=== PATIENT | male | born 1995 | race Caucasian/White ===

== ENCOUNTER 2020-05-26 00:18 | Emergency (ER) | payer OTHER ==
--- NOTE | 2020-05-26 00:24 | PDOC ---
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 Patient said there was a fair amount of blood and he got it on his hands and clothes. Patient denies getting any in his mouth nose face or eyes. Patient denies any open wounds on exposed surfaces where he came in contact with the blood. 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 No smoking. No alcohol. No illicit drugs. Surgical history: None General: No fevers or chills, no weakness, no weight loss HEENT: No change in vision. No sore throat,. No ear pain CardioVascular: no chest discomfort. No shortness of breath Respiratory:No cough, or wheezing. Gastrointestinal: no nausea, vomiting, diarrhea or constipation, No rectal bleeding Genitourinary: No dysuria, hematuria, or frequency Musculoskeletal: No joint or muscle pain or swelling Neurologic: No headache, vertigo, dizziness or loss of consciousness Psychiatric: nor depression Skin: No rashes or easy bruising Endocrine: no increased thirst or abnormal weight change Allergic: no skin or latex allergy All other systems reviewed and normal GENERAL: The patient is awake, alert, and fully oriented, in no acute distress. HEENT:Head is normal with no signs of trauma. Eyes: Pupils equal, round and reactive to light, Ears, and Throat are normal. Neck is supple. No Lymphadenopathy. EXTREMITIES:atraumatic, Normal range of motion, no edema. NEUROLOGICAL: Normal speech, normal gait. PSYCH: Normal mood, normal affect. SKIN: Warm, Dry, normal turgor, no rashes or lesions noted. 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 Patient discharged we will follow-up with the police surgeon as needed. HIV prophylaxis was not given as there was no exposure to mucous membranes or open wounds Past History - Medical History Allergies/Adverse Reactions: Allergies Allergy/AdvReac Type Severity Reaction Status Date / Time No Known Allergies Allergy Verified 02/02/16 21:18 Home Medications: Ambulatory Orders Dextroamphetamine/Amphetamine [Adderall Xr 30 mg Capsule] 30 mg PO DAILY 12/17/15 Oxycodone HCl/Acetaminophen [Percocet 5-325 mg Tablet] 1 tab PO Q6H PRN #10 tablet MDD 4 02/02/16 Azithromycin 250 mg PO DAILY #6 tablet 02/23/20 - Psycho-Social/Smoking History Smoking History: Never smoked Discharge - Discharge Information Problems reviewed: Yes Clinical Impression/Diagnosis: Exposure to blood or body fluid Condition: Stable Disposition: HOME - Admission No - Follow up/Referral - Patient Discharge Instructions Additional Instructions: Return to the emergency department immediately with ANY new, persistent or worsening symptoms. Continue any medications as previously prescribed by your physician. You should follow up with your primary doctor as soon as possible regarding today's emergency department visit. . Please make sure your doctor reviews the results of your emergency evaluation. Thank you for coming to the Emergency Department today for your care. It was a pleasure to see you today. Please note that your evaluation is INCOMPLETE until you follow-up with your doctor. - Post Discharge Activity Work/Back to School Note: Back to Work
[2020-05-26 00:35] VITALS: BP 122/70; PULSE 102; TEMP 98.9; BMI 26.4
== END 2020-05-26 00:49 | disposition home or self-care (01) ==
LOC: FER 00:18
DX: Z77.21 Contact with and (suspected) exposure to potentially hazardous body fluids (principal)
CPT/HCPCS: 99282-25

== ENCOUNTER 2020-11-01 23:11 | Emergency (ER) | payer OTHER ==
[2020-11-01 23:34] VITALS: BP 147/90; PULSE 114; TEMP 99.6; BMI 26.4
[2020-11-02] MEDS ORDERED: ACETAMINOPHEN 325 MG TABLET (FP) PO ONE (00:12)
[2020-11-02] MEDS ORDERED: ACETAMINOPHEN 325 MG TABLET (FP) ONE (00:13)
== END 2020-11-02 00:14 | disposition home or self-care (01) ==
LOC: FER 23:11
DX: M25.562 Pain in left knee (principal)
CPT/HCPCS: 99283-25

== ENCOUNTER 2021-07-03 22:08 | Emergency (ER) | payer OTHER, BC ==
[2021-07-03 22:19] VITALS: BP 152/91; PULSE 107; TEMP 98.1; BMI 26.4
== END 2021-07-03 22:50 | disposition home or self-care (01) ==
LOC: FER 22:08
DX: S46.911A Strain of unspecified muscle, fascia and tendon at shoulder and upper arm level, right arm, initial encounter (principal); Y04.0XXA Assault by unarmed brawl or fight, initial encounter
CPT/HCPCS: 99282-25

== ENCOUNTER 2023-03-26 10:58 | Emergency (ER) | payer BC, OTHER ==
[2023-03-26 11:02] VITALS: BP 135/67; PULSE 63; RESP 18; TEMP 97; BMI 24.5
== END 2023-03-26 12:31 | disposition home or self-care (01) ==
LOC: JERFT 10:58
PROC: 0HQFXZZ Repair Right Hand Skin, External Approach (ICD-10-PCS; principal; 2023-03-26)
DX: S61.011A Laceration without foreign body of right thumb without damage to nail, initial encounter (principal); W54.0XXA Bitten by dog, initial encounter
CPT/HCPCS: 99282-25